=== PATIENT | female | born 1955 | race Caucasian/White ===

== ENCOUNTER 2024-06-07 06:19 | Inpatient (IN) | payer OTHER, SELFPAY ==
[2024-06-07] VITALS (24 sets, daily range): BP systolic 81–119; BP diastolic 57–94; BMI 37.2; BMI 36.5
[2024-06-07 02:32] LABS: % Basophils 0.2 % (0-2); % Immature Granulocytes 0.7 % (0-0.5); % Lymphocytes 10.8 % (20.5-51.1); % Monocytes 1.4 % (1.7-9.3); % Neutrophils 86.9 % (42.2-75.2); Absolute Immature Granulocytes 0.1 10^3/uL (0-0.05); Absolute Lymphocytes 1.4 10^3/uL (1.2-3.4); Absolute Monocytes 0.2 10^3/uL (0.1-0.6); Absolute Neutrophils 11.4 10^3/uL (1.4-6.5); Hematocrit 35.2 % (37.0-47.0); Hemoglobin 12.1 g/dL (12.0-16.0); Mean Corp Hgb Conc. 34.4 g/dL (33.0-37.0); Mean Corpuscular Volume 84.4 fL (81.0-99.0); Mean Platelet Volume 10.4 fL (7.4-10.4); Nucleated Red Blood Cells % 0 %; Platelet Count 363 10^3/uL (130-400); Red Blood Cell Count 4.17 10^6/uL (4.20-5.40); Red Cell Dist. Width 12.9 % (11.5-14.5); White Blood Cell Count 13.2 10^3/uL (4.8-10.8)
[2024-06-07 02:45] LABS: ALT (SGPT) 33 U/L (0-35); AST (SGOT) 30 U/L (14-36); Albumin 4.2 g/dl (3.5-5.0); Alkaline Phosphatase 81 U/L (38-126); Blood Urea Nitrogen 22 mg/dl (7-17); Calcium 9.7 mg/dl (8.4-10.2); Carbon Dioxide 23 mmol/L (22-30); Chloride 106 mmol/L (98-107); Glucose 163 mg/dl (70-99); Potassium 4.1 mmol/L (3.5-5.1); Sodium 144 mmol/L (135-145); Total Bilirubin 0.3 mg/dl (0.2-1.3); Total Protein 6.7 g/dl (6.3-8.2); eGFR > 60.00
--- NOTE | 2024-06-07 03:15 | ED.GENMED ---
Addendum entered and electronically signed by Yonas Varela DO 06/07/24 05:48:
CT scan report noted, limited study but no large PE fluids have been started Cardizem restarted
Original Note:
History of Present Illness
General
Chief Complaint: Heart Rate Problem
Source: patient, spouse and ambulance crew
Exam Limitations: none
Time Seen by Provider: 06/07/24 03:09
Nursing documentation reviewed up to this point in time: agreed with
History of Present Illness
History of Present Illness:
68-year-old female hypertension presents with fast heart rates got a call from EMS she woke up short of breath with fast heart rate given 15 mg of Cardizem send URI for the past month seen in urgent care told was viral, no hemoptysis no fever no leg
edema no history of A-fib no history of heart failure, she had a steroid injection on her hip earlier today, apparently took a Xanax earlier this evening
Past History
Past History
ED Past Medical History: HTN and Hypercholesterolemia
ED Past Surgical History: and Gynecological
Social History
Tobacco: Non-smoker
Alcohol: None
Drug: None
Personal:
Living: with family
Employment: Employed
Family History
Family History: Negative Early CAD
Review of Systems
Review of Systems
All Other Systems: Not applicable
Constitutional: Reports fatigue; Denies fever
Respiratory: Reports cough and trouble breathing
Neurological: Reports dizzy
Endocrine: Reports no symptoms
Hematologic/Lymphatic: Reports no symptoms
Psychiatric: Reports no symptoms
Phy Exam
Physical Exam
Physical Exam:
Physical Exam
General: no apparent distress, not acutely ill
Neck: No jaundice
Heart: Rapid in
Lungs: No wheeze
Abdomen: Nontender
Neuro: alert and oriented. no focal neurological deficits
Skin: no rash
Psychiatric: well kept. interactive and cooperative
Extremities: no edema. no calf tenderness
Course
Orders/Labs/Results
Orders:
Orders
06/07/24 02:09
EKG [Electrocardiogram (*1)] Urgent
Reason for Study: Palpitations
EKG- Treatment ONCE
06/07/24 02:21
Complete Blood Count/With Diff Urgent
Comprehensive Metabolic Panel Urgent
TSH Reflex To Free T4 Urgent
06/07/24 03:10
Acetaminophen [Tylenol] 650 mg PO NOW STA
Diltiazem 125 mg/125 ml Nss [Cardizem] 125 mg in 125 ml IV NOW
Initial dose in mg/hr, then titrate:: 5
Titrate to keep:: Heart rate 80-100 bpm
Titrate by mg/hr:: 5 mg/hr
Frequency of titrations (minutes):: 15
Maximum dose in mg/hr:: 15
CR Chest - 2 Views Urgent
Comment:
Reason For Exam: sob
06/07/24 04:03
EKG [Electrocardiogram (*1)] Urgent
Reason for Study: Atrial Fibrillation
06/07/24 04:04
EKG- Treatment ONCE
06/07/24 04:06
NT-proBNP Urgent
Troponin I Urgent
06/07/24 04:09
COVID-19 Antigen Urgent
Source: Nasal Swab
Influenza A+B Rapid Molecular Urgent
GUILLERMINA Source: Nasal Swab
Specimen Description:
06/07/24 04:12
CT Chest Pe Study Urgent
Comment:
Reason For Exam: sob tachy
Abnormal Lab Results
06/07/24
02:21
WBC 13.2 H 10^3/uL
(4.8-10.8)
RBC 4.17 L 10^6/uL
(4.20-5.40)
Hct 35.2 L %
(37.0-47.0)
Abs Immat Gran (auto) 0.1 H 10^3/uL
(0-0.05)
Absolute Neuts (auto) 11.4 H 10^3/uL
(1.4-6.5)
Immature Gran % 0.7 H %
(0-0.5)
Neutrophils % 86.9 H %
(42.2-75.2)
Lymphocytes % 10.8 L %
(20.5-51.1)
Monocytes % 1.4 L %
(1.7-9.3)
BUN 22 H mg/dl
(7-17)
Glucose 163 H mg/dl
(70-99)
06/07/24 02:21
06/07/24 02:21
Vital Signs
Initial and Last Documented VS:
Initial Vital Signs
Pulse Resp
122 23
06/07/24 02:12 06/07/24 02:12
Last Documented Vital Signs
Temp Pulse Resp BP Pulse Ox
98.1 F 149 22 101/88 94
06/07/24 02:17 06/07/24 04:15 06/07/24 04:15 06/07/24 04:15 06/07/24 03:30
MDM/Problems Addressed
Differential Diagnosis Includes:
A-fib occult infection thyroid heart failure electrolyte abnormality
MDM/Problems Addressed:
Fast heart rate recent URI
Chronic conditions affecting care: HTN
Acute Exacerbation and/or Progression of Chronic Illness: HTN
*EKG
Interpreted by ED Provider?: Yes
Interpretation: abnormal
Comparison EKG: no comparison EKG present
Heart Rate: 135
Rate: tachycardiac
Ischemia: non-specific ST changes
*Mail Room Clerk Interpretation
Rate: tachycardiac
Interpretation: abnormal
Heart Rate: 140
Rhythm: a-fib
*Critical Care Note
Total Time (30-74mins, 75-104mins- exclusive of procedures): 30
Update Note
Update Note:
Update blood pressure low 1 5 Cardizem, heart rate still fast chest x-ray noted question failure, troponin proBNP noted
Update looks like patient converted ? Briefly, now back in rapid A-fib
ED Attending Note
-
Portions of this chart may have been created with voice recognition software.� Occasional wrong word or��sound alike� substitutions may have occurred due to the inherent limitations of voice recognition software.
Discharge Plan
Departure
Prescriptions:
No Action
simvastatin 40 MG tablet
40 mg PO QPM
paroxetine HCl 30 MG tablet
60 mg PO DAILY
Benicar
PO DAILY
Patient Comments:
pt states 'I think it's 10mg but I am not sure'.
Multiple Vitamins
PO 8/D
Referrals:
Jesús Bermudez, [Family Provider] -
Interventions
Interventions:
*Risk Screen - Suicide Last Done: 06/07/24 02:17
*General Assessment Last Done: 06/07/24 02:17
*Neglect/Abuse Screening Last Done: 06/07/24 02:17
*ED COVID-19 Vaccine History Last Done: 06/07/24 04:29
ED- Cardiac Assessment Last Done: 06/07/24 03:15
ED- Pulmonary Assessment Last Done: 06/07/24 03:15
Discharge Date and Time
Print Language: YORUBA
[2024-06-07] MEDS: TYLENOL 650 MG PO ×3 (03:33→18:23)
[2024-06-07] MEDS: CARDIZEM 125 IV (03:33)
[2024-06-07 04:36] LABS: NT-proBNP 1670 pg/ml; Troponin I < 0.012 ng/ml
[2024-06-07 04:43] LABS: COVID-19 Antigen Negative (Negative)
[2024-06-07] MEDS: NSS 1000 IV (05:46)
--- NOTE | 2024-06-07 06:04 | HPS.HSE ---
Family Physician
-
Family Physician: Jesús Bermudez
Chief Complaint
-
Palpitations
History of Present Illness
Patient is a 68y F with PMH significant for hypertension, anxiety and obesity who presents to ED complaining of palpitations that woke her from sleep. Patient states that she woke around 1 AM today with racing heartbeat. She had a headache,
felt mildly nauseated and diaphoretic. No chest pain / pressure. No dyspnea. She took a Xanax at home hoping this would improve her palpitations - without positive results. After about 30 minutes, she contacted 911 and presented to the ED for
further evaluation and treatment.
Patient denies any prior history of similar symptoms.
She has recently been dealing with cough / earache for about the past 4 weeks. She was evaluated at an Urgent Care a few weeks ago and treated with Rx cough medication (? promethazine /codeine).
She notes that her earache has improved; however, she has continued with hacking cough and some congestion. No fevers / chills.
Patient states that she has not been taking any OTC cold medications at all.
Her sister has been ill with similar symptoms.
They both traveled together to [place] about 1 month ago (via plane).
Patient also states that she received an intra-articular steroid injection on Thursday in the L hip.
She has had similar injections in the past without adverse effects.
Medical History
Past Medical History
Past Medical History: Reports Other
Additional Past Medical History:
Hypertension
MAYELIN on CPAP
Obesity
DJD
Anxiety / Depression
Past Surgical History: Reports Other
Additional Past Surgical History:
Ovarian Cystectomy
Bilateral TKA
Social History
Tobacco: Former Smoker (Quit smoking 35 years ago.)
Alcohol: None
Drug: None
Personal:
Living: With Family
Family History
Family History: Not pertinent
Allergies / Home Medications
Allergies reflects when Allergies were last updated in [facility].
Home Medications with original date entered in [facility]
Allergy/Medication List:
Allergies
Allergy/AdvReac Type Severity Reaction Status Date / Time
No Known Allergies Allergy Unverified 10/30/21 12:07
Home Medications
paroxetine HCl 30 mg tablet 60 mg PO DAILY 12/10/11
alprazolam 0.25 mg tablet (Xanax) 0.25 mg PO DAILY 06/07/24
atorvastatin 40 mg tablet 40 mg PO HS 06/07/24
losartan 100 mg-hydrochlorothiazide 12.5 mg tablet 1 tab PO DAILY 06/07/24
metoprolol succinate 50 mg tablet,extended release 24 hr 50 mg PO DAILY 06/07/24
Review of Systems
-
History Source: Patient
A 12 point ROS was completed and negative except as noted: Yes
Constitutional: Reports Fatigue; Denies Fever or Chills
EENT: Denies Sore Throat
Respiratory: Reports Cough; Denies Trouble Breathing
Cardiac: Reports Diaphoresis and Palpitations; Denies Chest Pain or Syncope
Abdomen/GI: Reports Nausea; Denies Abdominal Pain, Vomiting or Diarrhea
: Denies Dysuria, Frequency or Flank Pain
Musculoskeletal: Denies Joint Pain or Edema
Neurological: Reports Headache; Denies Dizzy
Psych: Denies Depression or Anxiety
Physical Exam
Vital Signs
Vital Signs
Temp Pulse Resp BP Pulse Ox
98.7 F 147 21 118/92 93
06/07/24 05:35 06/07/24 05:30 06/07/24 05:30 06/07/24 05:30 06/07/24 05:30
Physical Exam
General: Other (68y F in no acute distress.)
HEENT: Moist mucous membranes, PERRLA and Other (Thick neck.)
Respiratory: Clear; No Wheezes, Rales or Rhonchi
Cardiac: S1/S2, Irregular Rhythm and Tachycardia
GI: Soft, Non Tender, Non Distended and Normal Bowel Sounds
Musculoskeletal: No Clubbing, No Cyanosis and No Edema
Neuro: AO x 3
Laboratory Results
-
06/07/24 02:21
06/07/24 02:21
Laboratory Results
Total Bilirubin 0.3 mg/dl (0.2-1.3) 06/07/24 02:21
AST 30 U/L (14-36) 06/07/24 02:21
ALT 33 U/L (0-35) 06/07/24 02:21
Alkaline Phosphatase 81 U/L (38-126) 06/07/24 02:21
Troponin I < 0.012 ng/ml 06/07/24 04:06
Impression/Plan
-
A/P: Patient is a 68y F with PMH significant for hypertension and MAYELIN who presents to ED after waking early this AM with palpitations.
Atrial Fibrillation with Rapid Ventricular Response (new onset)
- Admit for further evaluation and treatment.
- Continue IV diltiazem and titrate as needed for improved rate control.
- Continue home metoprolol and titrate dose as needed.
- Begin Eliquis for stroke risk reduction for CHADSVASC = 3.
- Cardiology evaluation for additional recommendations.
- Seems that A-Fib started overnight at some point - with initial palpitations appreciated at 1AM.
- Check Echo. TSH was normal.
- Follow for any new / worsening symptoms.
Benign Hypertension
- BP currently on the low side secondary to A-Fib with RVR.
- Follow for improvement with rate / rhythm control.
- Hold outpatient losartan / HCT for now.
URI
- Symptoms for about 4 weeks - improving per patient though not yet resolved.
- COVID / Flu negative in the ED this evening.
- CT in the ED with no evidence of PE, infiltrate, etc.
- Follow for any new / worsening symptoms.
Dyslipidemia
- Stable. Continue statin.
Anxiety / Depression
- Stable. Continue paroxetine.
Obesity due to excess calories
- Affects all aspects of care.
- Encourage healthy diet and increased activity with goal of weight loss.
DVT Prophylaxis: On Eliquis
Code Status: Full
--- NOTE | 2024-06-07 08:00 | PTCARENOTE ---
Rec'd pt from ED AAOx3, w/no c/o CP or SOB. Pt able to ambulate on her own from stretcher to scale to bed. Pt's HR tachycardic in the 150's-160's w/activity & then drops to the 120's-130's at rest. Pt w/Cardizem IV drip infusing through patent IV
line as ordered. Pt's BP 94/74 on admit to floor. Pt is Afib w/RVR on telemetry monitoring. Pt oriented to room, spouse at bedside. Call jara within reach & plan of care ongoing.
--- NOTE | 2024-06-07 08:12 | EDRN ---
Patient taken to room 2254 on stretcher with Cardizem drip infusing on monitor.
--- NOTE | 2024-06-07 10:05 | CON.CAR ---
Addendum entered and electronically signed by James Fox MD (Ellie) 06/07/24 11:22:
I saw and examined the patient.
The resident's note was reviewed and I agree with the note.
Comment:
Lisa Oscar is a 68-year-old female with a history of hypertension, hyperlipidemia, obstructive sleep apnea on CPAP, and elevated BMI who presents with palpitations. This morning around 1 AM she woke up with palpitations and felt weak. Her
[employer]bit noted that her heart rate was in the 150s. She has had a cough for about 4 weeks in the setting of a viral infection for which she was seen in urgent care and given some cough medicine. In terms of past medical history, it is noted above.
She also has a smoking history but quit 35 years ago. On arrival to the emergency room, she was started on a diltiazem drip. Her heart rates are still ranging in the 130s to 140s. Her blood pressures are 90s/70s. She denies lightheadedness or
dizziness, but these pressures are low for her. She denies any chest pain, shortness of breath, presyncope, or syncope. Home medications include atorvastatin, HCTZ/lisinopril, and metoprolol. Exam is notable for an irregular and fast heart rate,
no murmurs, lungs clear, no swelling, normal JVP. Labs notable for negative troponin. ECG shows atrial fibrillation with rapid ventricular response and possible old inferior CA.
For her new onset atrial fibrillation, she has been started on apixaban 5 mg twice daily and got a dose this morning. We will plan for cardioversion today. She does not need DAYANA prior as she knows that she went into A-fib overnight last night.
Trigger for A-fib is unclear though she has many risk factors including MAYELIN, hypertension, and elevated BMI. We discussed risk factor modification. She will remain on her home metoprolol 50 mg daily and apixaban 5 mg twice daily on discharge.
Antihypertensives are held in the setting of lower blood pressures. Continue to hold until after cardioversion. She should remain on her atorvastatin. She does not have a table worker and would like to follow-up with us. We will schedule her for
follow-up on discharge.
Original Note:
Consultation
Consultation Request
Date/Time Consultation Requested: 06/07/24
Date/Time Consultation Performed: 06/07/24
Requesting Provider: Dr Kami Fox
Performing Provider: Dr Kenneth Guido
Reason for Consultation: Afib wih RVR
Medical History
-
History of Present Illness:
She is a 68-year-old female with history of hypertension, hyperlipidemia, MAYELIN on CPAP, obesity, former smoker quit 25 years ago presented to the ED with palpitations. Patient states that she woke up at night due to dry nose and throat from CPAP.
She felt a racing heartbeat and headache. She reports as these are new with no prior episodes. She took Xanax hoping that it would improve the symptoms with no relief. She also feels weak during the episode and that is when her called
EMS. She reports of having an episode of tachycardia during the surgery of bilateral knee replacement in the past. she reports of having dry hacking cough for the past 4 weeks, negative for COVID. She went to urgent care and she was prescribed
prescribed prescription cough medications, not sure the name of the medication. 1 day ago she received an intra-articular steroid injection for her left hip.She denies chest pain, shortness of breath, dizziness. She denies history of CAD, CA,
stroke, valvular disease, PE/DVT.
Past Medical History
Past Medical History: HTN and Hypercholesterolemia
Past Surgical History: Gynecological (Ovarian cyst removal) and Orthopedic (Bilateral knee replacement)
Social History
Tobacco: Former Smoker (Quit 35 years ago)
Alcohol: None
Drug: None
Personal:
Living: With Family
Family History
Family History: Reviewed & Not Pertinent
Allergies / Home Medications
Allergy/AdvReac Type Severity Reaction Status Date / Time
No Known Allergies Allergy Unverified 10/30/21 12:07
�Medication �Instructions �Recorded �Confirmed �Type
paroxetine HCl 30 mg tablet 60 mg PO DAILY 12/10/11 06/07/24 History
alprazolam 0.25 mg tablet (Xanax) 0.25 mg PO DAILY 06/07/24 06/07/24 History
atorvastatin 40 mg tablet 40 mg PO HS 06/07/24 06/07/24 History
losartan 100 1 tab PO DAILY 06/07/24 06/07/24 History
mg-hydrochlorothiazide 12.5 mg
tablet
metoprolol succinate 50 mg 50 mg PO DAILY 06/07/24 06/07/24 History
tablet,extended release 24 hr
Review of Systems
-
All other systems: Negative unless noted
Neurological: Headache
Physical Exam
Vital Signs
Temp Pulse Resp BP Pulse Ox
98.1 F 141 18 94/74 98
06/07/24 07:56 06/07/24 08:30 06/07/24 08:13 06/07/24 08:13 06/07/24 08:13
Lab Results
06/07/24 02:21
06/07/24 02:21
Troponin I < 0.012 ng/ml 06/07/24 04:06
Nym-F-Ogmssdfrtsl Pept 1670 pg/ml 06/07/24 04:06
Physical Exam
General: Comfortable
Respiratory: Clear
Cardiac: Irregular Rhythm (on exam and telemetry )
Musculoskeletal: No Edema
Neuro: AO x 3
Impression / Plan
-
Impression
A-fib with RVR
Hypotension
Plan and assessment
A-fib with RVR
Patient has been on Cardizem drip since this am
She has not reverted to sinus rhythm
Plan for cardioversion today
NPO since 6 am
If cardioversion is successful and she reverts back to sinus rhythm then will stop Cardizem drip
Anticoagulation to be continued for 4 weeks after the procedure for stroke prevention
Echo today
Hypotension
Continue to hold lisinopril-HCTZ
Monitor BP
Full code
Data Reviewed
-
EKG: Report Reviewed by me and Discussed with Physician
Labs: Labs Reviewed by me and Discussed with Physician
[2024-06-07] MEDS: ELIQUIS 5 MG PO ×2 (10:08→19:37)
[2024-06-07] MEDS: PAXIL 60 MG PO (10:08)
[2024-06-07] MEDS: TOPROL XL 50 MG PO (10:08)
[2024-06-07 10:31] LABS: Troponin I 0.018 ng/ml
--- NOTE | 2024-06-07 12:27 | CM ---
Pricing on Eliquis 5mg BID is $47 a month through the patient's prescription plan. Patient is agreeable to cost. I placed a free 30 day coupon in the patient's red discharge folder.
--- NOTE | 2024-06-07 12:43 | PTCARENOTE ---
Pt converted to SR at approx 1116. Confirmed w/EKG. MDs notified. BP 105/94, HR now in the 60's. Cardizem drip decreased to 5mg/ml/hr per protocol.
--- NOTE | 2024-06-07 14:35 | W.PN.UPDATE ---
Update Note
Progress Note Update
Was in A-fib with RVR this morning on diltiazem drip, and added BB. spontaneously back to sinus rhythm this afternoon. Started apixaban. Monitor BP. Went back into sinus rhythm, therefore we will continue to monitor. F/u Cards management
[2024-06-07 17:05] LABS: Troponin I 0.028 ng/ml
--- NOTE | 2024-06-07 17:40 | PTCARENOTE ---
Pt continues to be in SR per telemetry monitoring. Pt's HR in upper 50's-low 60's. BP 108/63. Cardizem drip titrated to off & pt to start PO Cardizem this evening.
[2024-06-07] MEDS: CARDIZEM CD 120 MG PO (18:19)
--- NOTE | 2024-06-07 21:08 | PTCARENOTE ---
Pt. received at change of shift. Pt. seen and assessed in room. Pt. AOx3, tele reading NSR 50s-60s. VS WNL. Complaining of 2/10 headache, but feeling 'better than earlier in the day'. RN explain plan of care to patient, pt. verbalizes understanding.
Call jara within reach. Continuing to monitor at this time.
[2024-06-07] MEDS: LIPITOR 40 MG PO (22:30)
[2024-06-07 23:09] LABS: Troponin I 0.023 ng/ml
[2024-06-08] VITALS (8 sets, daily range): BP systolic 113–139; BP diastolic 59–72; BMI 36.4
[2024-06-08 03:09] LABS: Hematocrit 30.8 % (37.0-47.0); Hemoglobin 10.5 g/dL (12.0-16.0); Mean Corp Hgb Conc. 34.1 g/dL (33.0-37.0); Mean Corpuscular Hgb 29.2 pg (27.0-31.0); Mean Corpuscular Volume 85.8 fL (81.0-99.0); Mean Platelet Volume 10.4 fL (7.4-10.4); Platelet Count 327 10^3/uL (130-400); Red Blood Cell Count 3.59 10^6/uL (4.20-5.40); Red Cell Dist. Width 13.2 % (11.5-14.5); White Blood Cell Count 18.1 10^3/uL (4.8-10.8)
[2024-06-08 03:19] LABS: Blood Urea Nitrogen 23 mg/dl (7-17); Calcium 9.2 mg/dl (8.4-10.2); Carbon Dioxide 22 mmol/L (22-30); Chloride 107 mmol/L (98-107); Estimated Creatinine Clearance 92 ml/min; Glucose 152 mg/dl (70-99); HDL Cholesterol 41 mg/dl; LDL Cholesterol, Calculated 76 mg/dl; Magnesium 1.8 mg/dl (1.6-2.3); Potassium 3.9 mmol/L (3.5-5.1); Sodium 142 mmol/L (135-145); Total Cholesterol 140 mg/dl (50-199); Triglyceride 116 mg/dl (10-149); Very Low Density Lipoprotein 23 mg/dl (0-30); eGFR > 60.00
--- NOTE | 2024-06-08 07:45 | PTCARENOTE ---
Assumed care of pt from prev nsg shift; Pt AAOx3 w/no c/o CP or SOB. Pt OOB/AMB freq in the rm. Pt's VS stable w/HR in the 60's & BP 119/63 this AM. Pt remains in SR on telemetry monitoring. Discussed Afib book w/pt & answered questions & provided
emotional support to pt. Pt w/no addtl needs at this time. Plan of care ongoing.
[2024-06-08] MEDS: ELIQUIS 5 MG PO ×2 (08:45→20:22)
[2024-06-08] MEDS: TOPROL XL 50 MG PO (08:45)
[2024-06-08] MEDS: PAXIL 60 MG PO (08:46)
--- NOTE | 2024-06-08 10:13 | W.PN.CD ---
Today's Communication / Plan
-
Continue metoprolol. Reduce dose to 25 mg daily for bradycardia.
Continue diltiazem 120 mg daily
Continue apixaban 5 mg twice daily.
Impression / Plan
-
Lisa Oscar is a 68-year-old female with a history of hypertension, hyperlipidemia, obstructive sleep apnea on CPAP, and elevated BMI who presents with palpitations. She was found to be in atrial fibrillation with RVR and converted to sinus
rhythm with IV diltiazem.
She will have an updated echocardiogram today before discharge. She should go home on diltiazem 120 mg daily and metoprolol 25 mg daily (half of home dose given bradycardia). I have advised her that if she still feels fatigued at home, she should
call our office and we can further titrate her medications. She should stop her home losartan/HCTZ given that her blood pressures are well-controlled on metop and dilt. She should continue apixaban 5 mg twice daily for anticoagulation. She should
remain on her atorvastatin. We will schedule her for follow-up in our office.
Subjective: Patient feels well this morning. A little tired. Yesterday she did not require cardioversion because she went into sinus rhythm on her own. Telemetry shows sinus rhythm overnight with heart rate 50s-60s.
Physical Exam
Vital Signs/Labs
Vital Signs
Temp Pulse Resp BP Pulse Ox
98.6 F 64 18 119/63 95
06/08/24 07:36 06/08/24 10:00 06/08/24 07:36 06/08/24 07:31 06/08/24 07:36
06/07/24 06/08/24 06/09/24
06:59 06:59 06:59
Actual Weight 101.5 kg 99.2 kg
06/08/24 02:37
06/08/24 02:37
Magnesium 1.8 mg/dl (1.6-2.3) 06/08/24 02:37
Triglycerides 116 mg/dl (10-149) 06/08/24 02:37
LDL Cholesterol, Calc 76 mg/dl 06/08/24 02:37
VLDL Cholesterol, Calc 23 mg/dl (0-30) 06/08/24 02:37
HDL Cholesterol 41 mg/dl 06/08/24 02:37
06/07/24
04:06
Npk-H-Wrnbfudyrml Pept 1670
LAB Results
06/07/24 06/07/24 06/07/24
04:06 09:58 16:19
Troponin I < 0.012 0.018 D 0.028 D
06/07/24
22:30
Troponin I 0.023
Physical Exam
Constitutional: No acute distress and Comfortable
Cardiovascular: Rhythm & rate is regular, Pedal edema is absent, JVD pressure is normal and Murmur/rub/gallop absent
Respiratory: Respiratory effort normal and Lungs clear to auscul.
Data Reviewed
-
Date of Service: June 08, 2024
Medical Decision Making: Reviewed Test Results, Independent Historian Assessment, Test Interpretation and Review of Case with other Provider
EKG: Tracing Personally Visualized and interpreted
Echo: Report Reviewed by me
Labs: Labs Reviewed by me
Total Time Spent with Patient (in minutes): 35
--- NOTE | 2024-06-08 15:34 | W.PN.HOSP.TC ---
Today's Communication/Plan
-
BB, CCB, statin, eliquis
monitor wbc, fever curve
Assessment / Plan
Assessment / Plan
Physical Exam
General: Other (68y F in no acute distress.)
HEENT: Moist mucous membranes, PERRLA and Other (Thick neck.)
Respiratory: Clear; No Wheezes, Rales or Rhonchi
Cardiac: S1/S2, regular Rhythm and Tachycardia
GI: Soft, Non Tender, Non Distended and Normal Bowel Sounds
Musculoskeletal: No Clubbing, No Cyanosis and No Edema
Neuro: AO x 3
A/P: Patient is a 68y F with PMH significant for hypertension and MAYELIN who presents to ED after waking early this AM with palpitations.
Atrial Fibrillation with Rapid Ventricular Response (new onset)
-Reverted back to sinus rhythm 06/07/2024
� Continue metoprolol, reduce 25 mg daily for bradycardia
� Continue diltiazem 120 mg daily
� Continue apixaban 5 mg twice daily
- She will follow-up with cardiology outpatient
� Stop losartan/hydrochlorothiazide
-ECHO f/u
Benign Hypertension
- BP currently on the low side secondary to A-Fib with RVR.
- stop arb/hctz
-bb, dilt
Leukocytosis
-most likely reactive due to atrial fibrillation
� Monitor fever curve, white count
URI
- Symptoms for about 4 weeks - improving per patient though not yet resolved.
- COVID / Flu negative in the ED this evening.
- CT in the ED with no evidence of PE, infiltrate, etc.
- Follow for any new / worsening symptoms.
Dyslipidemia
- Stable. Continue statin.
Anxiety / Depression
- Stable. Continue paroxetine.
Obesity due to excess calories
- Affects all aspects of care.
- Encourage healthy diet and increased activity with goal of weight loss.
DVT Prophylaxis: On Eliquis
Code Status: Full
Anticipated Discharge: Within 24 hours
Subjective/Interval History
-
Date of Service: June 08, 2024
No acute events, reverted back to sinus rhythm yesterday
Objective Data
-
Vital Signs:
Vital Signs
Temp Pulse Resp BP Pulse Ox
97.8 F 53 18 132/71 97
06/08/24 11:30 06/08/24 13:00 06/08/24 11:30 06/08/24 11:26 06/08/24 11:33
I&O
06/07/24 06/08/24 06/09/24
06:59 06:59 06:59
Intake Total 240 / 240 960 / 960
Balance 240 / 240 960 / 960
Review of Systems
-
History Source: Patient
All other systems: Not reviewed unless documented
Data Reviewed
-
Diagnostic Radiology: Image personally visualized and interpreted and Report Reviewed by me
CT Scan: Image personally visualized and interpreted and Report Reviewed by me
Labs: Labs Reviewed by me
[2024-06-08] MEDS: CARDIZEM CD 120 MG PO (18:09)
[2024-06-08] MEDS: LIPITOR 40 MG PO (22:12)
--- NOTE | 2024-06-09 00:28 | PTCARENOTE ---
Rec'd pt at change of shift on TELE monitor in NSR with VSS. Pt denied any pain or discomfort. Pt updated and agreeable to plan of care. Pt resting with call jara in reach. See flowchart and work-list for full nursing assessment.
[2024-06-09 02:26] VITALS: BP 116/65
[2024-06-09 03:00] VITALS: BP 116/65
[2024-06-09 03:14] LABS: Hematocrit 32.1 % (37.0-47.0); Hemoglobin 10.8 g/dL (12.0-16.0); Mean Corp Hgb Conc. 33.6 g/dL (33.0-37.0); Mean Corpuscular Hgb 30.3 pg (27.0-31.0); Mean Corpuscular Volume 90.2 fL (81.0-99.0); Mean Platelet Volume 10.9 fL (7.4-10.4); Platelet Count 315 10^3/uL (130-400); Red Blood Cell Count 3.56 10^6/uL (4.20-5.40); Red Cell Dist. Width 13.3 % (11.5-14.5)
[2024-06-09 03:36] LABS: ALT (SGPT) 30 U/L (0-35); AST (SGOT) 24 U/L (14-36); Albumin 3.7 g/dl (3.5-5.0); Alkaline Phosphatase 66 U/L (38-126); Blood Urea Nitrogen 21 mg/dl (7-17); Calcium 9.4 mg/dl (8.4-10.2); Carbon Dioxide 25 mmol/L (22-30); Chloride 108 mmol/L (98-107); Estimated Creatinine Clearance 92 ml/min; Glucose 120 mg/dl (70-99); Potassium 4.5 mmol/L (3.5-5.1); Sodium 143 mmol/L (135-145); Total Bilirubin 0.2 mg/dl (0.2-1.3); eGFR > 60.00
[2024-06-09 05:27] VITALS: BMI 36.6
[2024-06-09 07:50] VITALS: BP 142/81
[2024-06-09] MEDS: PAXIL 60 MG PO (08:03)
[2024-06-09] MEDS: ELIQUIS 5 MG PO (08:03)
[2024-06-09] MEDS: TOPROL XL 25 MG PO (08:03)
--- NOTE | 2024-06-09 08:24 | W.PN.CD ---
Today's Communication / Plan
-
stable for discharge from cardiology standpoint
follow up with Dr Fox and PCP
Impression / Plan
-
Lisa Oscar is a 68-year-old female with a history of hypertension, hyperlipidemia, obstructive sleep apnea on CPAP, and elevated BMI who presents with palpitations. She was found to be in atrial fibrillation with RVR and converted to sinus
rhythm with IV diltiazem.
P afib -
- No in NSR
- CHADSVASC 3 ( age>65,female and HTN)
- Continue Eliquis
- continue metoprolol and diltiazem
.
HTN monitor with med changes
- will remain off losartan and HCTZ
- continue metoprolol and Dilt
- if BP remains elevated then as outpatietn can consider restart low dose losartan
.
MAYELIN-
- CPAP
weight loss recommended
-
Physical Exam
Vital Signs/Labs
Vital Signs
Temp Pulse Resp BP Pulse Ox
98.9 F 55 20 142/81 94
06/09/24 07:48 06/09/24 08:00 06/09/24 07:48 06/09/24 07:50 06/09/24 07:50
06/08/24 06/09/24 06/10/24
06:59 06:59 06:59
Actual Weight 99.2 kg 99.7 kg
06/09/24 02:34
06/09/24 02:34
Magnesium 1.8 mg/dl (1.6-2.3) 06/08/24 02:37
Triglycerides 116 mg/dl (10-149) 06/08/24 02:37
LDL Cholesterol, Calc 76 mg/dl 06/08/24 02:37
VLDL Cholesterol, Calc 23 mg/dl (0-30) 06/08/24 02:37
HDL Cholesterol 41 mg/dl 06/08/24 02:37
06/07/24
04:06
Mjw-A-Iloswxspftx Pept 1670
LAB Results
06/07/24 06/07/24 06/07/24
04:06 09:58 16:19
Troponin I < 0.012 0.018 D 0.028 D
06/07/24
22:30
Troponin I 0.023
Physical Exam
Constitutional: No acute distress
Cardiovascular: Rhythm & rate is regular
Respiratory: Respiratory effort normal
GI: Soft
Neuro/Psych: Alert
Data Reviewed
-
Date of Service: June 09, 2024
Medical Decision Making: Reviewed Test Results
Medical Tests (PFT, Pathology etc): Image Personally Visualized and interpreted
Labs: Labs Reviewed by me
--- NOTE | 2024-06-09 09:47 | PTCARENOTE ---
Assumed care at 0700. Patient sitting on side of bed. Denies pain or shortness of breath, VSS, call jara in reach
--- NOTE | 2024-06-09 10:56 | CM ---
Chart reviewed. Patient is independent of ADLS, lives with her in a [address], [address], 0 [address]ME. Plan is for the patient to return home. CM to follow
[2024-06-09 11:41] VITALS: BP 128/71
--- NOTE | 2024-06-09 12:21 | W.PN.HOSP.TC ---
Today's Communication/Plan
-
BB, CCB, statin, eliquis
monitor wbc, fever curve with cbc outpatient in 3 days with pcp
f/u pcp, cards outpatient
Assessment / Plan
Assessment / Plan
Physical Exam
General: Other (68y F in no acute distress.)
HEENT: Moist mucous membranes, PERRLA and Other (Thick neck.)
Respiratory: Clear; No Wheezes, Rales or Rhonchi
Cardiac: S1/S2, regular Rhythm and Tachycardia
GI: Soft, Non Tender, Non Distended and Normal Bowel Sounds
Musculoskeletal: No Clubbing, No Cyanosis and No Edema
Neuro: AO x 3
A/P: Patient is a 68y F with PMH significant for hypertension and MAYELIN who presents to ED after waking early this AM with palpitations.
Atrial Fibrillation with Rapid Ventricular Response (new onset)
-Reverted back to sinus rhythm 06/07/2024
� Continue metoprolol, reduce 25 mg daily for bradycardia
� Continue diltiazem 120 mg daily
� Continue apixaban 5 mg twice daily
- She will follow-up with cardiology outpatient
� Stop losartan/hydrochlorothiazide
-ECHO f/u�EF 60 to 65%
Benign Hypertension
- BP currently on the low side secondary to A-Fib with RVR.
- stop arb/hctz
-bb, dilt
Leukocytosis
-most likely reactive due to atrial fibrillation
� Monitor fever curve, white count�no evidence of acute infection at this time
� White count trending down, monitor CBC in 3 to 5 days with PCP to ensure continued improvement
URI
- Symptoms for about 4 weeks - improving per patient though not yet resolved.
- COVID / Flu negative in the ED this evening.
- CT in the ED with no evidence of PE, infiltrate, etc.
- Follow for any new / worsening symptoms. - stable
Dyslipidemia
- Stable. Continue statin.
Anxiety / Depression
- Stable. Continue paroxetine.
Obesity due to excess calories
- Affects all aspects of care.
- Encourage healthy diet and increased activity with goal of weight loss.
DVT Prophylaxis: On Eliquis
Code Status: Full
More than 30 minutes spent in discharge including
Final examination of the patient
Summarizing hospital stay
Instructions for continuing care to all relevant caregivers
Preparation of discharge records, prescriptions, and referral forms
Total time spent (35 in minutes):
Anticipated Discharge: Today
Subjective/Interval History
-
Date of Service: June 09, 2024
No acute events, patient feels well
Objective Data
-
Labs:
Laboratory Results
06/09/24
02:34
WBC 16.0 H
Hgb 10.8 L
Hct 32.1 L
Plt Count 315
Sodium 143
Potassium 4.5
Chloride 108 H
Carbon Dioxide 25
BUN 21 H
Creatinine 0.7
Glucose 120 H
Calcium 9.4
Total Bilirubin 0.2
AST 24
ALT 30
Alkaline Phosphatase 66
Vital Signs:
Vital Signs
Temp Pulse Resp BP Pulse Ox
98.2 F 59 20 142/81 98
06/09/24 11:38 06/09/24 10:30 06/09/24 11:38 06/09/24 07:50 06/09/24 11:38
I&O
06/08/24 06/09/24 06/10/24
06:59 06:59 06:59
Intake Total 240 / 240 1200 / 1200
Balance 240 / 240 1200 / 1200
Review of Systems
-
History Source: Patient
All other systems: Not reviewed unless documented
Data Reviewed
-
Diagnostic Radiology: Image personally visualized and interpreted and Report Reviewed by me
CT Scan: Image personally visualized and interpreted and Report Reviewed by me
Labs: Labs Reviewed by me
--- NOTE | 2024-06-09 12:23 | W.DS.TRANS ---
DC Summary - Supervisor Screen Printing
-
Discharge Instructions:
Discharge Diagnosis/Procedures Atrial Fibrillation with Rapid Ventricular
Response (new onset)
Diet Low Cholesterol,Low Fat
Activity As tolerated
Blood Work CBC in 3 days with pcp to ensure WBC is coming
down (today is at 16)
Instructions:
Stand-Alone Forms:
Changes to Home Medications: Yes
Discharge Medications:
DC Medications w/original date entered in [employer]
paroxetine HCl 30 mg tablet 60 mg PO DAILY 12/10/11
alprazolam 0.25 mg tablet (Xanax) 0.25 mg PO DAILY 06/07/24
atorvastatin 40 mg tablet 40 mg PO HS 06/07/24
apixaban 5 mg tablet (Eliquis) 5 mg PO BID 30 days #60 tabs 06/09/24
diltiazem HCl 120 mg capsule,extended release 24 hr 120 mg PO QPM 30 days #30 caps 06/09/24
metoprolol succinate 25 mg tablet,extended release 24 hr 25 mg PO DAILY 30 days #30 tabs 06/09/24
Home Medication Changes
apixaban 5 mg tablet (Eliquis) 5 mg PO BID 30 days #60 tabs 06/09/24
diltiazem HCl 120 mg capsule,extended release 24 hr 120 mg PO QPM 30 days #30 caps 06/09/24
metoprolol succinate 25 mg tablet,extended release 24 hr 25 mg PO DAILY 30 days #30 tabs 06/09/24
Pending Results: No
--- NOTE | 2024-06-09 13:29 | PTCARENOTE ---
Patient discharged to home. driving home. Verbalized understanding of her instructions, IV and telemetry removed. Patient escorted to main lobby in a wheelchair
[2024-06-09 19:49] LABS: Hepatitis C Antibody Negative (Negative)
== END 2024-06-09 13:50 | disposition home or self-care (01) | DRG 310 ==
LOC: IVU 06:19
PROVIDERS: Internal Medicine Cardiovascular Disease; ADMITTING PHYSICIAN Hospitalist; ATTENDING PHYSICIAN Internal Medicine; EMERGENCY PHYSICIAN Emergency Medicine; FAMILY PHYSICIAN Family Medicine Adult Medicine; OTHER PHYSICIAN Student in an Organized Health Care Education/Training Program
DX: I48.91 Unspecified atrial fibrillation (principal); E66.09 Other obesity due to excess calories; Z68.37 Body mass index [BMI] 37.0-37.9, adult; F32.A Depression, unspecified; I10 Essential (primary) hypertension; J06.9 Acute upper respiratory infection, unspecified; E78.00 Pure hypercholesterolemia, unspecified; F41.9 Anxiety disorder, unspecified; G47.33 Obstructive sleep apnea (adult) (pediatric); M19.90 Unspecified osteoarthritis, unspecified site; I95.9 Hypotension, unspecified; Z96.653 Presence of artificial knee joint, bilateral; Z79.899 Other long term (current) drug therapy; Z87.891 Personal history of nicotine dependence; Z11.52 Encounter for screening for COVID-19
CPT/HCPCS: 71046; 71275; 80048; 80053; 80061; 83735; 83880; 84443; 84484; 85025; 85027; 86803; 87502; 87811; 93005; 93306; 96361; 96374; 99291; Q9967